=== PATIENT | female | born 1955 | race Native Hawaiian/Other Pacific Islander ===

== ENCOUNTER 2016-08-04 10:07 | Outpatient (CLI) | payer BC ==
[~2016-08-04 10:07] MED LIST: BENICAR20 MG PO; ELIMITE5 % EX; LISI20TA11 PO; RANI150T78 PO
== END 2016-08-04 19:12 | disposition home or self-care (01) ==
LOC: MAMMO 10:07
DX: Z12.31 Encounter for screening mammogram for malignant neoplasm of breast (principal)
CPT/HCPCS: G0202-TC

== ENCOUNTER 2017-11-25 15:34 | Outpatient (CLI) | payer BC | END 2017-11-25 23:28 | disposition home or self-care (01) | LOC: MAMMO 15:34 | DX: Z12.31 Encounter for screening mammogram for malignant neoplasm of breast (principal) ==

== ENCOUNTER 2018-01-18 15:21 | Emergency (ER) | payer OTHER ==
[~2018-01-18] VITALS: Ht 167.6 cm; Wt 82.1 kg
[2018-01-18 15:25] VITALS: TEMP 98.3
[2018-01-18 18:45] VITALS: BP 108/55
== END 2018-01-18 18:47 | disposition home or self-care (01) ==
LOC: ED 15:21
DX: S00.93XA Contusion of unspecified part of head, initial encounter (principal); S13.4XXA Sprain of ligaments of cervical spine, initial encounter; W01.10XA Fall on same level from slipping, tripping and stumbling with subsequent striking against unspecified object, initial encounter; Y93.E1 Activity, personal bathing and showering
CPT/HCPCS: 99283

== ENCOUNTER 2018-06-27 17:31 | Emergency (ER) | payer OTHER ==
[~2018-06-27] VITALS: Ht 167.6 cm; Wt 78.9 kg
[2018-06-27] MEDS ORDERED: LISI20TA11 PO (17:54)
[2018-06-27 19:01] LABS: PLATELET COUNT 204 K/uL (152-353)
[2018-06-27 19:08] LABS: POTASSIUM 3.5 mmol/L (3.6-5.2)
[2018-06-27 20:20] VITALS: BP 161/93; TEMP 97.8
== END 2018-06-27 20:20 | disposition home or self-care (01) ==
LOC: ED 17:31
PROVIDERS: Emergency Medicine
DX: I10 Essential (primary) hypertension (principal)
CPT/HCPCS: 36415; 80053; 82550; 82553; 84484; 85027; 93005; 99283

== ENCOUNTER 2019-12-08 11:14 | Outpatient (CLI) | payer OTHER | END 2019-12-08 20:45 | disposition home or self-care (01) | LOC: MAMMO 11:14 | DX: Z12.31 Encounter for screening mammogram for malignant neoplasm of breast (principal) ==

== ENCOUNTER 2020-07-17 11:40 | Outpatient (CLI) | payer OTHER | END 2020-07-17 22:43 | disposition home or self-care (01) | LOC: INF 11:40 | PROVIDERS: ATTEND Internal Medicine | DX: Z23 Encounter for immunization (principal) | CPT/HCPCS: 96372 ==

== ENCOUNTER 2020-08-08 11:18 | Outpatient (CLI) | payer OTHER | END 2020-08-08 19:38 | disposition home or self-care (01) | LOC: INF 11:18 | PROVIDERS: ATTEND Internal Medicine | DX: Z23 Encounter for immunization (principal) | CPT/HCPCS: 96372 ==

== ENCOUNTER 2020-08-26 12:50 | Emergency (ER) | payer OTHER ==
[~2020-08-26] VITALS: Ht 167.6 cm; Wt 72.6 kg
[2020-08-26 12:53] VITALS: TEMP 97.9
[2020-08-26 13:49] LABS: PLATELET COUNT 247 K/uL (152-353)
[2020-08-26 13:56] LABS: POTASSIUM 3.4 mmol/L (3.6-5.2)
[2020-08-26 14:34] VITALS: BP 111/80
== END 2020-08-26 14:47 | disposition home or self-care (01) ==
LOC: ED 12:50
PROVIDERS: Emergency Medicine Emergency Medical Services
DX: I10 Essential (primary) hypertension (principal); F17.210 Nicotine dependence, cigarettes, uncomplicated
CPT/HCPCS: 36415; 80053; 81000; 85027; 96374; 99284; J0360

== ENCOUNTER 2021-08-08 11:29 | Emergency (ER) | payer OTHER ==
[~2021-08-08] VITALS: Ht 167.6 cm; Wt 78.5 kg
[2021-08-08 12:12] LABS: PLATELET COUNT 227 K/uL (152-353)
[2021-08-08 12:38] LABS: POTASSIUM 3.7 mmol/L (3.6-5.2)
[2021-08-08] MEDS ORDERED: CLON0.1T16 PO (15:33)
[2021-08-08] MEDS ORDERED: HYDR25TA60 PO (15:33)
[2021-08-08 15:41] VITALS: BP 155/89; TEMP 99.1
== END 2021-08-08 15:42 | disposition home or self-care (01) ==
LOC: ED 11:29
PROVIDERS: Emergency Medicine
DX: I16.0 Hypertensive urgency (principal); Z20.822 Contact with and (suspected) exposure to COVID-19; F17.210 Nicotine dependence, cigarettes, uncomplicated
CPT/HCPCS: 80053; 81000; 84484; 85027; 87635; 93005; 96374; 99284; J3490; U0003

== ENCOUNTER 2021-08-12 11:08 | Outpatient (CLI) | payer OTHER ==
[~2021-08-12 11:08] MED LIST changes: +CLON0.1T16 PO; +HYDR25TA60 PO
== END 2021-08-12 19:44 | disposition home or self-care (01) ==
LOC: MAMMO 11:08
PROVIDERS: ATTEND Internal Medicine
DX: Z12.31 Encounter for screening mammogram for malignant neoplasm of breast (principal); Z13.820 Encounter for screening for osteoporosis; N95.8 Other specified menopausal and perimenopausal disorders

== ENCOUNTER 2022-05-18 14:58 | Outpatient (CLI) | payer OTHER | END 2022-05-18 19:07 | disposition home or self-care (01) | LOC: RAD 14:58 | PROVIDERS: ATTEND Internal Medicine | DX: M54.17 Radiculopathy, lumbosacral region (principal) ==

== ENCOUNTER 2022-08-17 15:17 | Outpatient (CLI) | payer OTHER | END 2022-08-17 19:28 | disposition home or self-care (01) | LOC: MAMMO 15:17 | PROVIDERS: ATTEND Internal Medicine | DX: Z12.31 Encounter for screening mammogram for malignant neoplasm of breast (principal) ==

== ENCOUNTER 2022-12-03 15:49 | Outpatient (CLI) | payer OTHER | END 2022-12-03 19:03 | disposition home or self-care (01) | LOC: US 15:49 | PROVIDERS: ATTEND Internal Medicine | DX: R60.0 Localized edema (principal); M79.605 Pain in left leg ==

== ENCOUNTER 2022-12-30 11:00 | Observation (INO) | payer OTHER ==
[2022-12-30] VITALS (10 sets, daily range): BP systolic 169–240; BP diastolic 84–119; TEMP 97.3–98.6; Ht 167.6 cm; Wt 79.0 kg
[~2022-12-30] VITALS: Ht 167.6 cm; Wt 79.0 kg
[2022-12-30 11:36] LABS: PLATELET COUNT 254 K/uL (152-353)
[2022-12-30 11:45] LABS: POTASSIUM 3.6 mmol/L (3.6-5.2)
[2022-12-30] MEDS ORDERED: LISI20TA31 PO (17:18)
[2022-12-30] MEDS ORDERED: NEURONTIN 100M100 MG PO (17:19)
[2022-12-30] MEDS ORDERED: MOBIC15 MG PO (17:19)
[2022-12-30] MEDS ORDERED: TRICOR145 M1 PO (17:20)
[2022-12-31 03:31] VITALS: BP 145/84; TEMP 98.2
[2022-12-31 07:53] VITALS: BP 177/93; TEMP 98
[2022-12-31 08:22] LABS: PLATELET COUNT 242 K/uL (152-353)
[2022-12-31 12:00] VITALS: BP 161/78; TEMP 97.6
[2022-12-31 15:54] VITALS: BP 183/90; TEMP 98.5
[2022-12-31 19:05] VITALS: BP 158/88; TEMP 98.4
[2023-01-01] VITALS: BP 126/79; TEMP 98.7
[2023-01-01 03:05] VITALS: BP 147/80; TEMP 98.5
[2023-01-01 07:55] VITALS: BP 139/72; TEMP 98.5
[2023-01-01] MEDS ORDERED: NORVASC 5MG TAB PO (09:50)
[2023-01-01 16:00] VITALS: BP 147/85; TEMP 98.5
[2023-01-01 20:00] VITALS: BP 145/83; TEMP 98.8
[2023-01-02] VITALS: BP 144/78; TEMP 98.6
[2023-01-02 04:00] VITALS: BP 133/85; TEMP 98.4
[2023-01-02 08:00] VITALS: BP 136/86; TEMP 98.2
[2023-01-02 12:00] VITALS: BP 126/69; TEMP 98.2
[2023-01-02 16:00] VITALS: BP 131/79; TEMP 97.6
[2023-01-02 20:05] VITALS: BP 114/78; TEMP 97.9
[2023-01-03] VITALS: BP 135/75; TEMP 97.9
[2023-01-03 04:00] VITALS: BP 118/77; TEMP 98
[2023-01-03 07:57] VITALS: BP 125/78; TEMP 98.7
[2023-01-03 11:55] VITALS: BP 136/82; TEMP 97.8
== END 2023-01-03 16:00 | disposition home or self-care (01) ==
LOC: ED 11:00 → MED/SURG 12:56
PROVIDERS: Family Medicine; ADMIT Nurse Practitioner Family; ATTEND Internal Medicine Endocrinology, Diabetes & Metabolism
DX: I10 Essential (primary) hypertension (principal); M48.02 Spinal stenosis, cervical region; M48.061 Spinal stenosis, lumbar region without neurogenic claudication; R42 Dizziness and giddiness; R26.81 Unsteadiness on feet; I25.10 Atherosclerotic heart disease of native coronary artery without angina pectoris; N30.00 Acute cystitis without hematuria; Z72.0 Tobacco use
CPT/HCPCS: 36415; 80048; 80053; 81000; 84484; 85027; 87077; 87086; 87088; 87186; 93005; 96365; 96374; 96375; 99221; 99284; G0378; J0696; J1885